=== PATIENT | female | born 1965 | race Caucasian/White ===

== ENCOUNTER 2017-10-12 07:30 | Emergency (ER) | payer BC ==
[~2017-10-12] VITALS: Ht 165.1 cm; Wt 95.5 kg
--- NOTE | ~2017-10-12 | CN ---
PATIENT NAME:JESSICA GUNDERSON MEDICAL RECORD: [id number] : 67 LOCATION:D.ER ADMIT DATE: ACCOUNT: [id number] CONSULTING PHYSICIAN: VICENTA BOURNE MD REFERRING PHYSICIAN: ALLI DOTSON MD DATE OF CONSULTATION: 10/12/2017 CARDIOLOGY CONSULTATION DIAGNOSIS: Atypical chest pain. HISTORY OF PRESENT ILLNESS: Ms. Gunderson has been camping and sleeping in an abnormal bed for the past week along with doing physical exertion associated with camping that she usually does not do. She comes in with 3 days of chest pain that has been constant on her left side. It is positional. When she moves toward the left side, the pain worsens. Her EKG is normal. Troponin is normal. PHYSICAL EXAMINATION: GENERAL APPEARANCE: Well-nourished, well-developed, appears stated age. Level of distress, comfortable. PSYCHIATRIC: Mental status, alert, normal affect. Orientation, oriented to time, place and person. EYES: Lids and conjunctiva, noninjected. No discharge, no pallor. ENT: Lips, teeth, gums, normal dentition. Oropharynx, no cyanosis, no pallor. NECK: Carotid arteries, bilateral normal upstroke, no bruits, no thrills. JUGULAR VEINS: No jugular venous pressure or distention. CERVICAL LYMPH NODES: Nontender, nonenlarged. THYROID: Not enlarged. Nontender. No nodules. LUNGS: Respiratory effort, unlabored. CHEST: Normal curvature. No thoracic deformity. No chest wall tenderness. Percussion, resonant. Auscultation, clear. No wheezes, no rales, no rhonchi. CARDIOVASCULAR: Precordial exam, nondisplaced. No heaves or pericardial thrills. Rate and rhythm, regular. Heart sounds, normal S1, normal S2. No S3, no gallop, no rub. Systolic murmur, not heard. Diastolic murmur, not heard. EXTREMITIES: No cyanosis, no edema. Peripheral pulses, full and equal in all extremities, except as noted. No bruits appreciated. ABDOMEN: Soft, nondistended. Normal aorta. No bruit. Nontender. No masses. Liver, nontender, no hepatomegaly. Spleen, nontender, no splenomegaly. MUSCULOSKELETAL: No joint tenderness. No joint swelling. No erythema. NEUROLOGICAL: Normal gait, normal strength, normal tone. SKIN: Warm and dry. REVIEW OF SYSTEMS: The patient reports easy bruising but reports no swollen glands. The patient reports no fever, no night sweats, no significant weight gain, no significant weight loss. No significant exercise tolerance. The patient reports no dry eyes, no irritation, no vision change. Patient reports no difficulty hearing and no ear pain. Patient reports no frequent nose bleeds or nose and sinus problems. Patient reports on arm pain on exertion. No shortness of breath while lying down. No history of heart murmur. Patient reports no cough, no wheezing or coughing up blood. Patient reports no abdominal pain, no vomiting. Normal appetite. No diarrhea and not vomiting blood. No nausea and no constipation. Patient reports no incontinence. No difficulty urinating. No hematuria. No increased frequency. Patient reports no muscle aches. No weakness, no arthralgias, no back pain. No swelling of the extremities. Patient reports no abnormal mole, no jaundice, no rashes. Reports CONSULT REPORT [id number] MARYCARMENJESSICA TIAGO no loss of consciousness. No weakness and no numbness. No seizures, dizziness, or headaches. The patient reports no depression, no sleep disturbance, feeling safe in a relationship and no alcohol abuse. Patient reports on fatigue. Reports no runny nose or sinus pressure. No itching, no hives, and no frequent sneezing. OVERALL IMPRESSION: Chest pain, atypical, most likely this is musculoskeletal in nature. This is not cardiac in nature. No other cardiac workup or treatment at this time needs to be ascertained. TRANSINT:[id number] Voice Confirmation ID: [id number] DOCUMENT ID: [id number] VICENTA BOURNE MD at 2002 CC: [id number] DICTATION DATE: 10/12/17 1019 [employer] MANAGER: 10/12/17 1051 DEP ER 10/12/17 [place] [address]
[~2017-10-12 07:30] MED LIST: CARAFATE1 G PO; CELEXA40 MG PO; LEVORA-281 TAB PO; PERCOCET 10/3251 TA1 PO; PRILOSEC20 MG PO; WELLBUTRIN SR150 MG PO
[2017-10-12 07:36] VITALS: Ht 165.1 cm; Wt 95.5 kg
[2017-10-12] MEDS ORDERED: LISINOPRIL10 MG PO (07:41)
[2017-10-12 08:15] LABS: BASOPHILS 0.5 % (0-2); EOSINOPHILS 11.6 % (0-7); HEMATOCRIT 38.1 % (36.0-48.0); HEMOGLOBIN 12.5 g/dL (12-16); IMMATURE GRANULOCYTES 0.2 % (0-5); MCH 28.9 pg (26.0-34.0); MCHC 32.8 g/dL (31.0-37.0); MEAN PLATELET VOLUME 8.8 fL (7.4-10.4); MONOCYTES 12.7 % (2-11); RBC 4.33 10x6/uL (4.00-5.40); WBC 5.6 10x3/uL (4.8-10.8)
[2017-10-12 08:20] LABS: PLATELET COUNT 253 10x3/uL (130-400)
[2017-10-12 08:41] LABS: ALBUMIN 3.1 g/dL (3.4-5.0); ALKALINE PHOSPHATASE 129 U/L (46-116); ALT (SGPT) 52 U/L (10-68); BILIRUBIN - TOTAL 0.22 mg/dL (0.2-1.3); CALC OSMOLALITY 282 mosm/kg (275-300); CALCIUM 9.1 mg/dL (8.5-10.1); CARBON DIOXIDE 32.2 mmol/L (21.0-32.0); CHLORIDE - SERUM 106 mmol/L (98-107); CKMB 0.6 U/L (0.0-3.6); CREATINE KINASE 116 UL (21-215); CREATININE - SERUM 0.8 mg/dL (0.6-1.3); GLUCOSE 98 mg/dL (74-106); PROTEIN - SERUM 6.8 g/dL (6.4-8.2); SODIUM 142 mmol/L (136-145); TROPONIN-I < 0.017 ng/mL (0.000-0.060); UREA NITROGEN 12 mg/dL (7-18); eGFR NON AFRICAN AMERICAN 80 mL/min (90-120)
[2017-10-12] MEDS ORDERED: ANAPROX DS550 MG PO (10:22)
[2017-10-12 10:53] VITALS: BP 119/81
== END 2017-10-12 10:53 | disposition home or self-care (01) ==
LOC: D.ER 07:30
PROVIDERS: Emergency Medicine
DX: M94.0 Chondrocostal junction syndrome [Tietze] (principal)